=== PATIENT | female | born 1965 | race Caucasian/White ===

== ENCOUNTER 2023-01-12 08:38 | Outpatient (CLI) | payer OTHER, SELFPAY ==
[2023-01-12 08:46] LABS: Kit Draw Collected
== END 2023-01-12 08:39 | disposition home or self-care (01) ==
LOC: ANHGOSHLAB 08:39
PROVIDERS: PCP Internal Medicine; Visit Provider Clinical Nurse Specialist
DX: E07.9 Disorder of thyroid, unspecified (principal); E53.8 Deficiency of other specified B group vitamins; E78.5 Hyperlipidemia, unspecified; E55.9 Vitamin D deficiency, unspecified
CPT/HCPCS: 36415

== ENCOUNTER 2023-03-26 00:40 | Day surgery (SDC) | payer OTHER, SELFPAY ==
[2023-03-18 08:50] VITALS: BMI 25.8
--- NOTE | 2023-03-25 11:32 | PM.HPGS ---
History of Present Illness History of Present Illness Consent: Risks, benefits, and alternatives have been discussed and questions answered. Patient agrees to proceed with procedure. Chief complaint: neoplasm screening Narrative: Angelina Rodriguez is a 58 year old female Referred for colon cancer screening. Review of Systems Review of Systems: All systems reviewed & are unremarkable except as noted in HPI and below PMFSH Past Medical History Medical History Hyperlipidemia Hypertension Thyroid disorder Surgical History Surgical History H/O section 2002 Family History Family History Mother Diabetes mellitus Hypertension Heart disease Thyroid disorder Grandparent Cerebrovascular accident Social History Social History Smoking status: Never smoker Alcohol intake: never Substance use: never Substance use type: does not use Lack of Transportation: No Lack of Food: Never True Current Housing: I Have Housing Concerned About Future Housing: No Difficulty Paying Gas/Electric Bills: No Difficulty Paying for Meds: No Currently Unemployed: No Education: High School Diploma/GED Difficulty w/ Childcare or Family Care: No Living arrangements: with family Spiritual care concerns: No Meds Home Medications and Allergies Home Medications Medication Instructions Recorded Confirmed Type aspirin 81 mg tablet,delayed 81 mg PO DAILY 08/13/22 03/18/23 History release (Adult Low Dose Aspirin) calcium carbonate 600 mg calcium 600 mg PO DAILY 08/13/22 03/18/23 History (1,500 mg) tablet ergocalciferol (vitamin D2) 1,250 1,250 mcg PO .QOWEEK #10 caps 08/13/22 03/18/23 Rx mcg (50,000 unit) capsule hydrochlorothiazide 25 mg tablet 25 mg PO .QOD #90 tabs 08/13/22 03/18/23 Rx irbesartan 150 mg tablet 75 mg PO DAILY #45 tabs 08/13/22 03/18/23 Rx levothyroxine 50 mcg tablet 50 mcg PO .6XWEEKLY #90 tabs 08/13/22 03/18/23 Rx (Synthroid) rosuvastatin 5 mg tablet (Crestor) 5 mg PO DAILY #90 tabs 05/03/23 07/06/23 Rx mecobalamin (vitamin B12) 1,000 1,000 mcg sublingual DAILY #90 tabs 01/20/23 03/18/23 Rx mcg disintegrating tablet,sublingual tizanidine 4 mg tablet 4 mg PO QHS PRN muscle spasticity 02/09/23 03/18/23 Rx #20 tabs Allergies Allergy/AdvReac Type Severity Reaction Status Date / Time No Known Allergies Allergy Unverified 03/26/23 07:59 Exam Resp: Auscultation: clear to auscultation bilaterally Cardio: Rate: regular rate Rhythm: regular rhythm GI: GI Palp: Yes Soft to palpation and No Tenderness to palpation present (GI) Assessment and Plan Assessment and plan (1) Screening for colon cancer: Code(s): Z12.11 - Encounter for screening for malignant neoplasm of colon Status: Acute Assessment and Plan: Colonoscopy with possible biopsy or polypectomy or cautery or injection of substances.
[2023-03-26 08:02] VITALS: BP 136/64; PULSE 89; RESP 18; TEMP 36.1; O2SAT 100
[2023-03-26] MEDS: LACTATED RINGERS 1,000 ML 150 ML IV CONT (08:09)
--- NOTE | 2023-03-26 08:41 | WPDANESEPPF ---
Anes - Initial Pre Proc Eval Procedure: Operation Date: 03/26/23 09:00 Proposed Procedures p Screening Colonoscopy - Rajendra Donaldson MD Date/Time: 03/26/23 08:41 Surgeon: Rajendra Donaldson MD Pre Op Diagnosis: neoplasm screening Patient Data Age: 58 Gender: F Height: 1.68 m Weight: 74.2 kg Last Vital Signs Temp 97 F L 03/26/23 08:02 Pulse 89 03/26/23 08:02 Resp 18 03/26/23 08:02 BP 136/64 03/26/23 08:02 Pulse Ox 100 03/26/23 08:02 O2 Del Method Room Air 03/26/23 08:02 Allergies Allergy/AdvReac Type Severity Reaction Status Date / Time No Known Allergies Allergy Unverified 03/26/23 07:59 Home Medications Medication Instructions Recorded Confirmed Type aspirin 81 mg tablet,delayed 81 mg PO DAILY 08/13/22 03/18/23 History release (Adult Low Dose Aspirin) calcium carbonate 600 mg calcium 600 mg PO DAILY 08/13/22 03/18/23 History (1,500 mg) tablet ergocalciferol (vitamin D2) 1,250 1,250 mcg PO .QOWEEK #10 caps 08/13/22 03/18/23 Rx mcg (50,000 unit) capsule hydrochlorothiazide 25 mg tablet 25 mg PO .QOD #90 tabs 08/13/22 03/18/23 Rx irbesartan 150 mg tablet 75 mg PO DAILY #45 tabs 08/13/22 03/18/23 Rx levothyroxine 50 mcg tablet 50 mcg PO .6XWEEKLY #90 tabs 08/13/22 03/18/23 Rx (Synthroid) rosuvastatin 5 mg tablet (Crestor) 5 mg PO DAILY #90 tabs 01/13/23 03/18/23 Rx mecobalamin (vitamin B12) 1,000 1,000 mcg sublingual DAILY #90 tabs 01/20/23 03/18/23 Rx mcg disintegrating tablet,sublingual tizanidine 4 mg tablet 4 mg PO QHS PRN muscle spasticity 02/09/23 03/18/23 Rx #20 tabs Patient hx anesthesia problems: none Family hx anesthesia problems: none Results Review: All pre-operative results and documents have been reviewed as part of the pre-operative evaluation. [facility] Past Medical History Medical History Hyperlipidemia Hypertension Thyroid disorder Surgical History Surgical History H/O section 2002 Family History Family History Mother Diabetes mellitus Hypertension Heart disease Thyroid disorder Grandparent Cerebrovascular accident Social History Social History Smoking status: Never smoker Alcohol intake: never Substance use: never Substance use type: does not use Lack of Transportation: No Lack of Food: Never True Current Housing: I Have Housing Concerned About Future Housing: No Difficulty Paying Gas/Electric Bills: No Difficulty Paying for Meds: No Currently Unemployed: No Education: High School Diploma/GED Difficulty w/ Childcare or Family Care: No Living arrangements: with family Spiritual care concerns: No Anes - Eval Final PreProcedure Day of Procedure 03/26/23 08:41 Patient weight: normal Heart: regular rate and rhythm Lungs: clear to auscultation Airway: Mallampati scale class II Neurological: alert and oriented Last oral intake: >/= 8 hours ASA classification: II Emergent: no Anesthetic plan: proceed Anesthesia type and monitoring: general GIVS and standard monitoring Results Review: All pre-operative results and documents have been reviewed as part of the pre-operative evaluation. Informed Consent: The patient's anesthetic plan and its attendant risks and benefits were discussed with the patient/family/POA. Questions were solicited and answers provided to the satisfaction of the patient/family/POA.
[2023-03-26 09:09] VITALS: BP 105/60; PULSE 82; RESP 28; O2SAT 100
[2023-03-26 09:19] VITALS: BP 96/78; PULSE 81; RESP 18; O2SAT 100
[2023-03-26 09:29] VITALS: BP 115/71; PULSE 71; RESP 25; O2SAT 100
== END 2023-03-26 09:37 | disposition home or self-care (01) ==
PROVIDERS: PCP Internal Medicine; Visit Provider Internal Medicine Gastroenterology
PROC: 0DJD8ZZ Inspection of Lower Intestinal Tract, Via Natural or Artificial Opening Endoscopic (ICD-10-PCS; CPT 45378; principal; 2023-03-26 09:00)
DX: Z12.11 Encounter for screening for malignant neoplasm of colon (principal); K52.9 Noninfective gastroenteritis and colitis, unspecified; K63.5 Polyp of colon; I10 Essential (primary) hypertension; E78.5 Hyperlipidemia, unspecified; E07.9 Disorder of thyroid, unspecified; Z79.82 Long term (current) use of aspirin
CPT/HCPCS: 45380; 88305; J2704; J7120

== ENCOUNTER 2023-07-28 08:36 | Outpatient (CLI) | payer OTHER, SELFPAY ==
[2023-07-28 16:35] LABS: Kit Draw Collected
== END 2023-07-28 08:37 | disposition home or self-care (01) ==
LOC: ANHGOSHLAB 08:38
PROVIDERS: PCP Internal Medicine; Visit Provider Clinical Nurse Specialist
DX: I10 Essential (primary) hypertension (principal); Z13.228 Encounter for screening for other metabolic disorders
CPT/HCPCS: 36415

== ENCOUNTER → 2023-10-08 13:11 | Outpatient (CLI) | payer OTHER, SELFPAY ==
--- NOTE | ~2023-10-08 | MM_ITS ---
EXAMINATION: MM screening faith BI w harrison HISTORY: Screening mammogram TECHNIQUE: Craniocaudal and mediolateral oblique 3-D tomosynthesis images were obtained and synthetic 2-D images were generated. CAD analysis was submitted and interpreted. COMPARISON: No prior mammogram is available for comparison at this institution. BREAST PARENCHYMAL COMPOSITION: There are scattered areas of fibroglandular density. FINDINGS: RIGHT BREAST: An asymmetry is present in the middle third of the breast just above the nipple axis, 6 .3 cm deep to the nipple on the mediolateral oblique view. LEFT BREAST: No suspicious mass, calcification, or architectural distortion are identified to suggest malignancy. IMPRESSION: 1. Right breast asymmetry which may represent the patient's baseline however no comparison is current ly available. 2. Comparison with prior mammograms is necessary. BI-RADS Category 0: Incomplete: Needs comparison with prior mammograms. Reviewed, dictated and finalized at location A. TICAL DIRECTOR IMPRESSION: 1. Right breast asymmetry which may represent the patient's baseline however no comparison is currently available. 2. Comparison with prior mammograms is necessary. BI-RADS Category 0: Incomplete: Needs comparison with prior mammograms.
--- NOTE | ~2023-10-08 | DEXA_ITS ---
Bone Density Report Name: THEA COHEN Age: 58 Sex: Female Ethnicity: White Date of : 1965 Indication: postmenopausal; screening for osteoporosis; Referring Provider: Yoly Sinclair Study: Bone densitometry was performed. Exam Date: October 08, 2023 Accession number: [id number] Bone Density: Region BMD T-score Z-score Classification AP Spine (L1-L4) 0.839 -1.9 -0.5 Osteopenia Femoral Neck (Left) 0.579 -2.4 -1.2 Osteopenia Total Hip (Left) 0.753 -1.6 -0.6 Osteopenia Femoral Neck (Right) 0.598 -2.3 -1.0 Osteopenia Total Hip (Right) 0.744 -1.6 -0.7 Osteopenia Total Hip Mean 0.749 -1.6 -0.7 Osteopenia World Health Organization criteria for BMD impression classify patients as: Normal (T-score at or above -1.0), Osteopenia (T-score between -1.0 and -2.5), or Osteoporosis (T-score at or below -2.5). 10-year Fracture Risk(1): Major Osteoporotic Fracture 11% Hip Fracture 1.7% Reported Risk Factors: [place] (), Neck BMD=0.579, BMI=27.4 (1) FRAX(R) Version 3.08. Fracture probability calculated for an untreated patient. Fracture probability may be lower if the patient has received treatment. Clinical Information Provided by Patient: Has used the following medications: Vitamin D, Calcium Patient maximum height was 66 Menopause Age: 51 No regular weight bearing exercise Drinks caffeinated beverages Onset of menses at age 14 Number of children 1 Impression: The patient has low bone mass, based on the Left Femoral Neck T-score. The patient has an estimated ten-year risk of hip fracture of 1.7% and an estimated ten-year risk of major fracture of 11%, based on the WHO FRAX algorithm. Discussion: BONE DENSITY IS LOW AT ONE OR MORE SKELETAL SITES. This patient's lowest T-score is low at one or more skeletal sites. It meets the World Health Organization's (WHO) criteria for ?low bone mass? (T-score between -1.0 and -2.5). The patient's 10-year risk of fracture as calculated by FRAX is less than the threshold where pharmacological therapy is recommended by the National Osteoporosis Foundation (NOF). However, all treatment decisions require clinical judgment and consideration of individual patient factors, including patient preferences, comorbidities, previous drug use, risk factors not captured in the FRAX model (e.g., frailty, falls, vitamin D deficiency, increased bone turnover, interval significant decline in bone density) and possible under or overestimation of fracture risk by FRAX. The patient should follow a healthful lifestyle (good nutrition with adequate calcium and vitamin D, and appropriate weight-bearing exercise). Follow-Up: Consider repeating this study in 2 to 3 years to reassess this patient's status, or sooner if there is some new clinical indication. Reported by: KARLA on
== END ==
PROVIDERS: PCP Clinical Nurse Specialist; Visit Provider Clinical Nurse Specialist
DX: Z12.31 Encounter for screening mammogram for malignant neoplasm of breast (principal); R92.8 Other abnormal and inconclusive findings on diagnostic imaging of breast; M85.89 Other specified disorders of bone density and structure, multiple sites; Z78.0 Asymptomatic menopausal state
CPT/HCPCS: 77063; 77067; 77080

== ENCOUNTER 2023-11-18 07:43 | Outpatient (CLI) | payer OTHER, SELFPAY ==
--- NOTE | ~2023-11-18 | MMUS_ITS ---
EXAMINATION: MM diagnostic faith RT w harrison, US breast RT limited HISTORY: Asymmetry reported in middle third of the upper right breast 6.3 cm deep to the nipple on sc reening MLO view of 10/08/2023 TECHNIQUE: Additional 3-D tomosynthesis images of the right breast were performed and synthetic 2-D i mages were generated. CAD analysis was submitted and interpreted. High resolution upper inner and upp er outer quadrant right breast ultrasound was performed. COMPARISON: 10/08/2023, 06/03/2021, 04/26/2020 screening mammogram examinations FINDINGS: MAMMOGRAPHIC FINDINGS: No suspicious mass or architectural distortion is detected. Posterior outer mid right breast probable benign intramammary lymph node ULTRASOUND: 10:00 5 cm from nipple: There is a reverse C-shaped circumscribed hypoechoic area with probable fatty hilum and hilar vascularity, likely a benign intramammary lymph node. No suspicious mass or architectural distortion or other significant abnormality is detected. IMPRESSION: 1. Probable benign finding 2. Six-month diagnostic right mammogram and right breast ultrasound follow-up are recommended BI-RADS category 3, probably benign findings. Reviewed, dictated and finalized at location A. EED OIL BOILER IMPRESSION: 1. Probable benign finding 2. Six-month diagnostic right mammogram and right breast ultrasound follow-up a re recommended BI-RADS category 3, probably benign findings.
== END 2023-11-18 07:44 ==
LOC: MICIMG 07:44
PROVIDERS: PCP Clinical Nurse Specialist; Visit Provider Clinical Nurse Specialist
DX: R92.8 Other abnormal and inconclusive findings on diagnostic imaging of breast (principal)
CPT/HCPCS: 76642; 77061; 77065; G0279

== ENCOUNTER 2024-02-01 09:12 | Outpatient (CLI) | payer OTHER, SELFPAY ==
[2024-02-01 22:03] LABS: Kit Draw Collected
== END 2024-02-01 09:13 | disposition home or self-care (01) ==
LOC: ANHGOSHLAB 09:15
PROVIDERS: PCP Internal Medicine; Visit Provider Clinical Nurse Specialist
DX: E78.5 Hyperlipidemia, unspecified (principal); E53.8 Deficiency of other specified B group vitamins; Z13.228 Encounter for screening for other metabolic disorders; I10 Essential (primary) hypertension; E55.9 Vitamin D deficiency, unspecified; E07.9 Disorder of thyroid, unspecified
CPT/HCPCS: 36415

== ENCOUNTER 2024-05-23 07:34 | Outpatient (CLI) | payer OTHER, SELFPAY ==
--- NOTE | ~2024-05-23 | MMUS_ITS ---
EXAMINATION: MM diagnostic faith RT w harrison, US breast RT limited HISTORY: Six-month follow-up of probable benign right breast lymph node TECHNIQUE: 3-D tomosynthesis images of the right breast were performed and synthetic 2-D images were generated. CAD analysis was submitted and interpreted. High resolution limited right breast ultrasoun d was performed. COMPARISON: 11/18/2023, 10/08/2023 BREAST PARENCHYMAL COMPOSITION:Not Dense. There are scattered areas of fibroglandular density. FINDINGS: MAMMOGRAPHIC FINDINGS: Parenchymal pattern of the right breast is unchanged. Stable asymmetry at the upper right breast. No new parenchymal abnormality seen. No suspicious mammographic ossifications. ULTRASOUND: Stable probable benign lymph node identified at the 10:00 position right breast 5 cm from the nipple. There is a hypoechoic reniform structure with feeding vessel hilum. IMPRESSION: Stable probable benign lymph node at 10:00 position right breast, 5 cm from the nipple. No evidence for malignancy. Stable mammographic examination. Return to routine annual screening advised. BI-RADS Category 2: Benign finding(s). Reviewed, dictated and finalized at location . IMPRESSION: Stable probable benign lymph node at 10:00 position right breast, 5 cm from th e nipple. No evidence for malignancy. Stable mammographic examination. Return to routine annual screening advised. BI-RADS Category 2: Benign finding(s).
== END 2024-05-23 07:35 | disposition home or self-care (01) ==
PROVIDERS: PCP Clinical Nurse Specialist; Visit Provider Clinical Nurse Specialist
DX: R92.8 Other abnormal and inconclusive findings on diagnostic imaging of breast (principal)
CPT/HCPCS: 76642; 77061; 77065; G0279

== ENCOUNTER 2024-11-11 08:19 | Outpatient (CLI) | payer OTHER, SELFPAY | END 2024-11-11 08:20 | disposition home or self-care (01) | LOC: MICIMG 08:20 | PROVIDERS: PCP Clinical Nurse Specialist; Visit Provider Clinical Nurse Specialist | DX: Z12.31 Encounter for screening mammogram for malignant neoplasm of breast (principal) | CPT/HCPCS: 77063; 77067 ==